=== PATIENT | female | born 1990 ===

== ENCOUNTER 2020-12-08 22:25 | Observation (INO) | payer BC ==
[2020-12-08] MEDS ORDERED: Acetaminophen 325 MG TAB PO PRN (23:40)
[2020-12-08] MEDS ORDERED: Ondansetron PF 4 MG/2 ML Vial IVP PRN (23:40)
[2020-12-08] MEDS ORDERED: Ondansetron ODT 4 MG TAB PO PRN (23:40)
[2020-12-09 00:35] LABS: Amphetamine Not Detected (NotDetected); Barbiturates Screen Not Detected (NotDetected); Benzodiazepine Screen Not Detected (NotDetected); Cocaine Metabolite Screen Not Detected (NotDetected); Methadone Not Detected (NotDetected); Methamphetamine Not Detected (NotDetected); Opiate Screen Not Detected (NotDetected); Oxycodone Screen Not Detected (NotDetected); Phencyclidine (PCP) Not Detected (NotDetected); THC/Cannabinoid Screen Not Detected (NotDetected); Tricyclic Screen Not Detected (NotDetected)
[2020-12-09 00:38] LABS: #Monocytes 0.9 10x3/uL (0.0-1.1); %Basophils 0.1 % (0.0-2.0); %Lymphocytes 26.5 % (18.0-47.0); %Neutrophils 60.3 % (40.0-75.0); Hemoglobin 11.8 g/dL (12.0-15.5); Mean Corpuscular HGB CONC 34.1 g/dL (32.0-36.0); Mean Corpuscular Hemoglobin 28.4 pg (27.0-33.0); Mean Corpuscular Volume 83.4 fl (81.6-98.3); Mean Platelet Volume 9.8 fl (7.4-10.4); Platelet Count 191 10x3/uL (150-450); RBC Distribution Width 12.4 % (11.5-14.5); Red Blood Cell (RBC) Count 4.15 10x6/uL (3.90-5.03); White Blood Cell (WBC) Count 6.7 10x3/uL (3.5-10.5)
[2020-12-09] MEDS ORDERED: Labetalol HCl 100 MG/20 ML VIAL SLOW IVP PRN (00:50)
[2020-12-09 00:53] LABS: ALT (SGPT) 17 U/L (8-55); AST (SGOT) 12 U/L (5-34); Alkaline Phosphatase 44 U/L (40-110); Anion Gap 10 mmol/L (10-20); BUN (Urea Nitrogen) 6 mg/dL (7.0-18.7); Bilirubin, Total 1.9 mg/dL (0.2-1.2); Calc. Creatinine Clearance 0 mL/min (70-130); Calcium 8.6 mg/dL (7.8-10.44); Carbon Dioxide 22 mmol/L (22-29); Chloride 111 mmol/L (98-107); Globulin 2.7 g/dL (2.4-3.5); Glucose 101 mg/dL (70-105); Potassium 4.3 mmol/L (3.5-5.1); Protein, Total 6.7 g/dL (6.0-8.3); Sodium 139 mmol/L (136-145)
[2020-12-09] MEDS ORDERED: ALPRAZolam 0.5 MG TAB PO SCH (01:00)
[2020-12-09 01:09] VITALS: BMI 31.1
[2020-12-09] MEDS: Sodium Chloride 0.9% 1,000 ML IV SCH ×2 (01:10→11:06)
[2020-12-09] MEDS ORDERED: Metoprolol Tartrate 25 MG TAB PO SCH ×2 (01:15→09:00)
[2020-12-09] MEDS ORDERED: Enoxaparin Sodium 40 MG/0.4 ML SYRINGE SC SCH (09:00)
[2020-12-09] MEDS ORDERED: HYDROcodone/Acetaminophen 5/325 mg Tablet PO PRN (09:40)
[2020-12-09] MEDS ORDERED: Propranolol HCl LA 80 MG CAP PO SCH (11:00)
[2020-12-09 11:40] VITALS: BP 116/70; TEMP 98
[2020-12-10] MEDS ORDERED: Propranolol HCl LA 60 MG CAP PO SCH (09:00)
== END 2020-12-09 12:55 | disposition home or self-care (01) ==
LOC: CSHERS 22:25 → INTOOBSV 23:40 → CSHTELE 23:40 → UNDOADMIN 12-09 00:15 → CSHTELE 12-09 00:15 → UNDODISIN 12-09 14:18
PROVIDERS: ADMIT Internal Medicine; ATTEND Internal Medicine
DX: R00.0 Tachycardia, unspecified (principal); F41.9 Anxiety disorder, unspecified
CPT/HCPCS: 36415; 80053; 80306; 83735; 84484; 85025; 85379; 93005; 93306; J1650; J2405; J7050